=== PATIENT | female | born 1975 | race Caucasian/White ===

== ENCOUNTER 2023-07-25 02:29 | Emergency (ER) | payer OTHER, MEDICAID ==
[~2023-07-25] VITALS: Ht 162.6 cm; Wt 84.4 kg
[2023-07-25] MEDS ORDERED: METFORMIN HCL500 MG PO (02:46)
[2023-07-25] MEDS ORDERED: AMOX TR-K CLV1 EAC1 PO (02:57)
[2023-07-25] MEDS ORDERED: AMOXICILLIN/CLAVULANATE K 875 MG HOME.PACK PO ONE (03:00)
[2023-07-25] MEDS ORDERED: DOXYCYCLINE HYCLATE 100 MG HOME.PACK PO ONE (03:00)
[2023-07-25 03:28] VITALS: BP 138/97
== END 2023-07-25 03:28 | disposition home or self-care (01) ==
LOC: ED 02:29
DX: E11.621 Type 2 diabetes mellitus with foot ulcer (principal); L97.511 Non-pressure chronic ulcer of other part of right foot limited to breakdown of skin; I10 Essential (primary) hypertension; E78.00 Pure hypercholesterolemia, unspecified; Z75.8 Other problems related to medical facilities and other health care
CPT/HCPCS: 36415; 73660; 83036; 99283-25; A9270